=== PATIENT | female | born 1975 | race African-American/Black ===

== ENCOUNTER 2023-06-16 14:24 | Emergency (ER) | payer SELFPAY ==
[~2023-06-16] VITALS: Ht 157.5 cm; Wt 87.1 kg
[2023-06-16] MEDS ORDERED: PENICILLIN V P500 MG PO (15:17)
[2023-06-16] MEDS ORDERED: IBUPROFEN600 MG PO (15:18)
[2023-06-16] MEDS ORDERED: ULTRAM 50MG50 MG PO (15:19)
[2023-06-16] MEDS: TRAMADOL HCL 50 MG TAB PO ONE (15:32)
[2023-06-16] MEDS: AMOXICILLIN/CLAVULANATE K 875 MG TAB PO STA (15:32)
[2023-06-16] MEDS: IBUPROFEN 600 MG TAB PO STA (15:33)
[2023-06-16 15:36] VITALS: BP 134/76; PULSE 80; RESP 18; TEMP 98.3; O2SAT 100
== END 2023-06-16 15:38 | disposition home or self-care (01) ==
LOC: FSED 14:31
DX: K08.89 Other specified disorders of teeth and supporting structures (principal); K02.9 Dental caries, unspecified
CPT/HCPCS: 99283

== ENCOUNTER 2024-04-30 19:10 | Emergency (ER) | payer OTHER ==
[~2024-04-30] VITALS: Ht 157.5 cm; Wt 91.2 kg
[~2024-04-30 19:10] MED LIST: IBUPROFEN600 MG PO; PENICILLIN V P500 MG PO; ULTRAM 50MG50 MG PO
[2024-04-30 19:33] VITALS: PULSE 91; RESP 18; TEMP 98
[2024-04-30] MEDS ORDERED: CEPHALEXIN MONOHYDRATE 250 MG CAP ONE (19:48)
[2024-04-30] MEDS ORDERED: IBUPROFEN800 MG PO (19:51)
[2024-04-30] MEDS ORDERED: CEPHALEXIN500 MG PO (19:51)
[2024-04-30] MEDS: LIDOCAINE HCL 1% LOCAL INJ 20 ML VIAL INJ ONE (19:54)
[2024-04-30] MEDS: CEPHALEXIN 500 MG CAP PO SCH (19:55)
[2024-04-30] MEDS: IBUPROFEN 400 MG TAB PO ONE (20:02)
[2024-04-30] MEDS: CEPHALEXIN MONOHYDRATE 250 MG CAP PO ONE (20:02)
[2024-04-30 20:07] VITALS: BP 135/87; PULSE 91; RESP 18; TEMP 98; O2SAT 98
[2024-04-30] MEDS: IBUPROFEN 600 MG TAB PO STA (20:10)
== END 2024-04-30 20:07 | disposition home or self-care (01) ==
LOC: FSED 19:34
DX: L02.412 Cutaneous abscess of left axilla (principal)
CPT/HCPCS: 99283

== ENCOUNTER 2024-12-12 12:43 | Emergency (ER) | payer SELFPAY ==
[~2024-12-12] VITALS: Ht 152.4 cm; Wt 94.5 kg
[~2024-12-12 12:43] MED LIST changes: +CEPHALEXIN500 MG PO; +IBUPROFEN800 MG PO
[2024-12-12] MEDS: LIDOCAINE HCL 1% LOCAL INJ 20 ML VIAL INJ ONE (13:15)
[2024-12-12] MEDS ORDERED: KETOROLAC TROME10 MG PO (13:31)
[2024-12-12] MEDS ORDERED: HYDROCODON-ACE1 EA11 PO (13:31)
[2024-12-12] MEDS ORDERED: CEPHALEXIN500 MG PO (13:31)
[2024-12-12] MEDS: HYDROCODONE/APAP 5MG-325MG TAB PO ONE (13:46)
[2024-12-12] MEDS: IBUPROFEN 600 MG TAB PO STA (13:46)
[2024-12-12 14:40] VITALS: PULSE 76; RESP 16; TEMP 98.4; O2SAT 98
== END 2024-12-12 14:40 | disposition home or self-care (01) ==
LOC: FSED 12:47
DX: L73.2 Hidradenitis suppurativa (principal)
CPT/HCPCS: 10060; 96372; 99283; J2003